=== PATIENT | female | born 1965 | race Hispanic/Latino ===

== ENCOUNTER 2018-03-02 08:13 | Day surgery (SDC) | payer OTHER ==
[2018-03-02 08:23] LABS: Urine Appearance CLOUDY; Urine Bilirubin NEGATIVE (NEG); Urine Blood NEGATIVE (NEG); Urine Color YELLOW; Urine Glucose NEGATIVE (NEG); Urine Protein NEGATIVE (NEG); Urine Urobilinogen 0.2 mg/dL (0.2-1.0); Urine pH 7.5 (5.0-7.0)
[2018-03-02 08:24] LABS: Absolute Lymphocytes (CBC) 1.7 K/uL (0.7-4.9); Absolute Monocytes 0.3 K/uL (0.1-1.3); Absolute Neutrophil 3.8 K/uL (1.8-8.0); Basophils % 0.6 % (0-1.3); Eosinophils % 4.3 % (0-4.4); Hematocrit 40.8 % (36.0-45.0); Lymphocytes % 27.4 % (15.3-44.8); MCH 30.7 pg (27.0-35.0); MCV 90.8 fL (80-100); MPV 8.4 fL (7.6-11.3); RBC Red Blood Cell Count 4.49 M/uL (3.86-4.86)
[2018-03-02 08:25] LABS: Urine Microscopic Reflex ORDER UMIC
[2018-03-02 08:39] LABS: Urine Amorphous Sediment 1+ /HPF (NONE SEEN); Urine Bacteria 20-50 /HPF (<20); Urine Culture Reflex Order REFLEXED; Urine RBC <5 /HPF (NONE SEEN)
[2018-03-02] MEDS ORDERED: Ringers Lactate 1,000 ML IV ONE ×2 (08:41→11:38)
[2018-03-02] MEDS ORDERED: PROPOFOL 200 MG/20 ML VIAL IV ONE (08:51)
[2018-03-02] MEDS ORDERED: ONDANSETRON HCL 40 MG/20 ML VIAL ONE (08:53)
[2018-03-02] MEDS ORDERED: MIDAZOLAM HCL 2 MG/2 ML INJ ONE (08:53)
[2018-03-02] MEDS ORDERED: FENTANYL CITR 100 MCG/2 ML ONE (08:53)
[2018-03-02] MEDS ORDERED: ROCURONIUM 50 MG/5 ML VIAL IV ONE (08:53)
[2018-03-02] MEDS ORDERED: LIDOCAINE 2% MPF 5 ML VIAL ONE (08:53)
--- NOTE | 2018-03-02 08:59 | RAD REPORT ---
EXAM DESCRIPTION: Jade Bundy (2 Views)03/02/2018 8:09 am CLINICAL HISTORY: Preop for abdominal surgery COMPARISON: None FINDINGS: The lungs appear clear of acute infiltrate. The heart is normal size IMPRESSION: No acute abnormalities displayed
[2018-03-02] MEDS ORDERED: CEFAZOLIN/SWI 1gm 1 GM/10 ML SYR ONE (09:15)
[2018-03-02] MEDS ORDERED: EPINEPHRINE/PF 1 MG/ML AMP ONE (09:22)
[2018-03-02] MEDS ORDERED: NA CHLORIDE 0.9% 1,000 ML ONE (09:23)
[2018-03-02] MEDS ORDERED: DEXAMETHASONE 10 MG/ML VIAL ONE (09:40)
[2018-03-02] MEDS: MEPERIDINE HCL 50 MG/ML AMP ONE ×6 (10:42→12:42)
[2018-03-02] MEDS ORDERED: Mastisol Adhesive Liq ONE (11:10)
[2018-03-02] MEDS ORDERED: NEOSTIGMINE 1 MG/ML -5 ML SYRINGE ONE (11:16)
[2018-03-02] MEDS ORDERED: GLYCOPYRROLATE 0.2 MG/ML SYR ONE (11:16)
[2018-03-02] MEDS ORDERED: HYDROCODONE/APAP 10/325 TAB ONE (13:45)
[2018-03-02] MEDS ORDERED: ONDANSETRON 4 MG (ODT) TAB ONE (14:48)
[2018-03-02] MEDS ORDERED: PROMETHAZINE 25 MG TABLET ONE (14:59)
--- NOTE | 2018-03-02 15:37 | EKG ---
Test Date: 2018-03-02 Test Time: 07:51:01 Billboard Poster: MASSIEL MEASUREMENT RESULTS: Intervals: Rate: 63 IA: 144 QRSD: 74 QT: 402 QTc: 411 [place]: P: 61 IA: 144 QRS: 19 T: 38 INTERPRETIVE STATEMENTS: Normal sinus rhythm Septal infarct, age undetermined Abnormal ECG No previous ECG available for comparison Electronically Signed On 03-02-18 15:34:49 CDT by Bin Mathews
--- NOTE | 2018-03-02 22:29 | OP ---
Surgeon: Dale Rooney MD Borough Coordinator: Srinath. Preoperative Diagnosis: Abdominal lipodystrophy. Postoperative Diagnosis: Abdominal lipodystrophy. Procedure: Abdominoplasty. Anesthesia: General. Description Of Procedure: After satisfactory induction of general anesthesia, abdomen was prepped wi DuraPrep, dry sterile drapes placed in the usual manner. A felt-tip marking pen was used to outli ne a curvilinear incision extending from anterior iliac spine to pubic tubercle, inferior spine. Sca lpel was used to incise the skin and subcutaneous tissue, dissection down to the fascia of the abdomi nal wall. The flap was elevated with incision made around the umbilicus. Flap was split to the umbi licus and dissection proceeded to the costal margin and sternum as well as inferiorly. After this wa s done, the patient underwent bilateral lateral plication using #1 Prolene running from the costal ma rgin down to the anterior superior iliac spine pulling 5 cm laterally, extending both sides. Then th e midline was plicated with interrupted 0 Prolene buried knots approximately 3 cm wide above the umbi licus, 1.5 cm wide over the pubic region. After this was done, then the patient had excess skin cut off. TARUN drains brought out laterally, sewn in place with 2-0 silk. The quilting suture was replaced with 3-0 Vicryl and then incision was made for the umbilicus. A 4-0 Prolene was used to close the u mbilicus and then placed 3-0 Vicryl in the incision line. Then, 3-0 PDS running subcuticular tied fr om lateral to medial tied in the vertical midline of the abdominal wall. Dressing consisted of tinct ure of benzoin, Steri-Strips, 4x4s, elastic tape. The patient tolerated the procedure well. The amount removed was 1346 g. Volume was 415, pressure was 17. GH/MODL Voice ID: [id number] Report ID: [id number]
== END 2018-03-02 15:17 | disposition home or self-care (01) ==
LOC: OR 08:13
PROVIDERS: ATTEND Specialist
PROC: 0J080ZZ Alteration of Abdomen Subcutaneous Tissue and Fascia, Open Approach (ICD-10-PCS; principal; 2018-03-02 09:00)
DX: E88.1 Lipodystrophy, not elsewhere classified (principal); Z91.048 Other nonmedicinal substance allergy status
CPT/HCPCS: 36415; 71046; 81003; 81015; 85025; 87086; 87088; 93005; J0171; J0690; J1100; J2175; J2250; J2405; J2710; J3010; J7030